=== PATIENT | female | born 1965 | race Two or more races ===

== ENCOUNTER 2016-09-15 10:46 | Emergency (ER) | payer MEDICAID ==
[~2016-09-15] VITALS: Ht 165.1 cm; Wt 81.6 kg
[2016-09-15 11:38] VITALS: BP 142/55
== END 2016-09-15 11:56 | disposition home or self-care (01) ==
LOC: ER 10:46
DX: S80.02XA Contusion of left knee, initial encounter (principal); S80.01XA Contusion of right knee, initial encounter; W19.XXXA Unspecified fall, initial encounter; Y93.89 Activity, other specified; Y99.8 Other external cause status; Y92.89 Other specified places as the place of occurrence of the external cause
CPT/HCPCS: 73564